=== PATIENT | male | born 1945 | race Caucasian/White ===

== ENCOUNTER → 2017-09-15 | Outpatient (CLI) | payer MEDICARE, OTHER ==
[2017-09-15 10:01] VITALS: BP 124/96
== END ==
LOC: SPU 08:48
PROVIDERS: ATTEND Internal Medicine Medical Oncology
DX: E83.110 Hereditary hemochromatosis (principal)
CPT/HCPCS: 85014; 99195

== ENCOUNTER → 2017-12-18 | Outpatient (CLI) | payer MEDICARE, OTHER ==
[2017-12-18 15:50] VITALS: BP 125/83
[2017-12-18 16:39] VITALS: BP 115/84
== END ==
LOC: SPU 07:41
PROVIDERS: ATTEND Internal Medicine Medical Oncology
DX: E83.119 Hemochromatosis, unspecified (principal)
CPT/HCPCS: 85014; 99195

== ENCOUNTER 2018-03-19 15:41 | Outpatient (RCR) | payer MEDICARE, OTHER ==
[2018-03-19 15:43] VITALS: BP 138/84
== END 2018-03-31 09:39 | disposition home or self-care (01) ==
LOC: SPU 15:41
PROVIDERS: ATTEND Internal Medicine Medical Oncology
DX: E83.119 Hemochromatosis, unspecified (principal)
CPT/HCPCS: 85014; 99195

== ENCOUNTER 2018-06-21 09:27 | Outpatient (RCR) | payer MEDICARE, OTHER ==
[2018-06-21 13:14] VITALS: BP 129/86
[2018-06-21 13:46] VITALS: BP 118/84
== END 2018-08-04 09:32 | disposition home or self-care (01) ==
LOC: SPU 09:27
PROVIDERS: ATTEND Internal Medicine Medical Oncology
DX: E83.110 Hereditary hemochromatosis (principal)
CPT/HCPCS: 85014

== ENCOUNTER 2018-09-24 12:30 | Outpatient (RCR) | payer MEDICARE, OTHER ==
[2018-09-24 12:33] VITALS: BP 129/87
[2018-09-24 13:13] VITALS: BP 136/89
== END 2018-12-22 ==
LOC: SPU 12:30
PROVIDERS: ATTEND Internal Medicine Medical Oncology
DX: E83.119 Hemochromatosis, unspecified (principal)
CPT/HCPCS: 85014; 99195

== ENCOUNTER 2018-12-30 18:40 | Emergency (ER) | payer MEDICARE, OTHER ==
[2018-12-30] MEDS ORDERED: LR IV ONE (19:00)
--- NOTE | 2018-12-30 19:05 | ER Report ---
History and Physical Time Seen By MD: 18:43 Hx. of Stated Complaint: PATIENT REPORTS FEVER, DIARRHEA, AND NAUSEA HPI/ROS CHIEF COMPLAINT: Diarrhea HISTORY OF PRESENT ILLNESS: 73-year-old male presents with multiple episodes of diarrhea. He first had loose stool last night, followed by 4 more overnight and 5 today. Stool has been watery and not bloody or black or mucousy. He has not recently been ill prior to this. He has had some mild cramping but does not have any currently. He has had some nausea but no vomiting. He has not had fever or chills. He has had a mild headache throughout the day. He has no chest pain or trouble breathing. He has no rash. He feels generally fatigued. He has no known sick contacts. He has no known food exposures. He has not had any recent travel. His is present with him and is not ill. Patient took an him Imodium prior to arrival. His last episode was at approximately 1600. titutional: No fever, no chills. Eyes: No discharge. ENT: No sore throat. Cardiovascular: No chest pain, no palpitations. Respiratory: No cough, no shortness of breath. Gastrointestinal: above Genitourinary: no dysuria Musculoskeletal: No back pain. Skin: No rashes. Neurological: above Remainder of the 14 system rev: Yes Allergies: Coded Allergies: Sulfa (Sulfonamide Antibiotics) (Verified Allergy, Intermediate, RASH, 12/30/18) Home Meds No Active Prescriptions or Reported Meds Reviewed Nurses Notes: Yes Constitutional Vital Sign - Last 24 Hours 12/30/18 12/30/18 12/30/18 12/30/18 18:45 18:46 19:00 19:10 Pulse 138 129 Resp 17 12 B/P (MAP) 139/99 (112) 139/99 135/92 (106) Pulse Ox 90 90 12/30/18 12/30/18 12/30/18 12/30/18 19:30 19:40 19:45 20:00 Pulse 121 122 Resp 16 17 B/P (MAP) 134/86 (102) 141/96 (111) Pulse Ox 90 90 12/30/18 12/30/18 12/30/18 12/30/18 20:05 20:30 20:35 20:40 Pulse 117 114 112 Resp 8 18 16 B/P (MAP) 136/97 (110) Pulse Ox 91 89 89 12/30/18 12/30/18 12/30/18 12/30/18 21:00 21:10 21:15 21:27 Pulse 109 113 Resp 15 16 B/P (MAP) 140/90 (107) 141/89 (106) Pulse Ox 91 90 12/30/18 12/30/18 12/30/18 12/30/18 21:30 21:45 22:00 22:15 Pulse 114 Resp 16 18 B/P (MAP) 132/88 (103) 139/95 (110) Pulse Ox 91 92 12/30/18 12/30/18 12/30/18 12/30/18 22:30 22:35 23:00 23:05 Pulse 114 111 Resp 14 21 B/P (MAP) 148/97 (114) 147/91 (109) Pulse Ox 90 90 12/30/18 12/30/18 12/30/18 12/31/18 23:28 23:30 23:35 00:00 Pulse 109 Resp 12 B/P (MAP) 142/88 (106) 134/86 (102) 128/89 (102) Pulse Ox 91 12/31/18 00:05 Pulse 110 Resp 17 Pulse Ox 87 Intake and Output 12/30/18 12/30/18 12/31/18 15:01 23:01 07:01 Intake Total 2881 ml 1000 ml Balance 2881 ml 1000 ml Physical Exam General Appearance: The patient is alert, has no immediate need for airway protection and no signs of toxicity. Eyes: Pupils equal and round no pallor or injection. ENT, Mouth: Mucous membranes are moist. Respiratory: There are no retractions, lungs are clear to auscultation. Cardiovascular: tachycardia to 140's no m/r/g Gastrointestinal: Abdomen is soft and non tender, no masses, bowel sounds normal. Neurological: alert, no gross deficit Skin: Warm and dry, no rashes. Musculoskeletal: Extremities are nontender, nonswollen and have full range of motion. DIFFERENTIAL DIAGNOSIS: After history and physical exam differential diagnosis was considered for abdominal infection, sepsis, infectious diarrhea, food toxin, or other emergnet etiology. Medical Decision Making Data Points Result Diagram: 12/30/18184912/30/181849 Laboratory Hematology Test 12/30/18 00:00 12/30/18 18:41 12/30/18 18:50 D-Dimer Quantitative (PE/DVT) 1.64 ug/ml (0-0.50) Urine Color Yellow Urine Clarity Clear Urine pH 6.0 pH (4.8-9.5) Urine Specific [place] 1.023 Urine Protein Negative mg/dL (NEGATIVE) Urine Glucose (UA) Negative mg/dL (NEGATIVE) Urine Ketones 20 mg/dL (NEGATIVE) Urine Blood Negative (NEGATIVE) Urine Nitrite Negative (NEGATIVE) Urine Bilirubin Negative (NEGATIVE) Urine Urobilinogen Negative mg/dL (0.2-1.9) Urine Leukocyte Esterase Negative (NEGATIVE) Urine RBC 1 /HPF (0-2/HPF) Urine WBC <1 /HPF (0-5/HPF) Urine Squamous Epithelial Cells Few /LPF (</=FEW) Urine Bacteria Negative /HPF (NONE-FEW) Urine Mucus Few /HPF (NONE-FEW) Red Blood Count 4.59 M/uL (4.00-5.60) Mean Corpuscular Volume 96.6 fL (80.0-96.0) Mean Corpuscular Hemoglobin 33.2 pg (26.0-33.0) Mean Corpuscular Hemoglobin Concent 34.4 g/dL (32.0-36.0) Red Cell Distribution Width 12.8 % (11.5-14.5) Mean Platelet Volume 8.2 fL (7.2-11.1) Neutrophils (%) (Auto) 85.3 % (39.4-72.5) Lymphocytes (%) (Auto) 9.2 % (17.6-49.6) Monocytes (%) (Auto) 4.2 % (4.1-12.4) Eosinophils (%) (Auto) 0.4 % (0.4-6.7) Basophils (%) (Auto) 0.9 % (0.3-1.4) Nucleated RBC Relative Count (auto) 0.0 /100WBC Neutrophils # (Auto) 11.0 K/uL (2.0-7.4) Lymphocytes # (Auto) 1.2 K/uL (1.3-3.6) Monocytes # (Auto) 0.5 K/uL (0.3-1.0) Eosinophils # (Auto) 0.1 K/uL (0.0-0.5) Basophils # (Auto) 0.1 K/uL (0.0-0.1) Nucleated RBC Absolute Count (auto) 0.01 K/uL Sodium Level 137 mmol/L (137-145) Potassium Level 4.2 mmol/L (3.5-5.0) Chloride Level 102 mmol/L (98-107) Carbon Dioxide Level 20 mmol/L (22-30) Blood Urea Nitrogen 16 mg/dl (9-21) Creatinine 1.00 mg/dl (0.66-1.25) Glomerular Filtration Rate Calc > 60.0 Random Glucose 129 mg/dl (75-110) Calcium Level 9.6 mg/dl (8.4-10.2) Magnesium Level 1.5 mg/dl (1.7-2.2) Total Bilirubin 0.8 mg/dl (0.2-1.3) Aspartate Amino Transf (AST/SGOT) 34 U/L (0-35) Alanine Aminotransferase (ALT/SGPT) 43 U/L (0-56) Alkaline Phosphatase 75 U/L (0-126) Total Protein 8.3 g/dl (6.3-8.2) Albumin 4.7 g/dl (3.5-5.0) Lipase 49 U/L (23-300) Chemistry Test 12/30/18 00:00 12/30/18 18:41 12/30/18 18:50 D-Dimer Quantitative (PE/DVT) 1.64 ug/ml (0-0.50) Urine Color Yellow Urine Clarity Clear Urine pH 6.0 pH (4.8-9.5) Urine Specific [place] 1.023 Urine Protein Negative mg/dL (NEGATIVE) Urine Glucose (UA) Negative mg/dL (NEGATIVE) Urine Ketones 20 mg/dL (NEGATIVE) Urine Blood Negative (NEGATIVE) Urine Nitrite Negative (NEGATIVE) Urine Bilirubin Negative (NEGATIVE) Urine Urobilinogen Negative mg/dL (0.2-1.9) Urine Leukocyte Esterase Negative (NEGATIVE) Urine RBC 1 /HPF (0-2/HPF) Urine WBC <1 /HPF (0-5/HPF) Urine Squamous Epithelial Cells Few /LPF (</=FEW) Urine Bacteria Negative /HPF (NONE-FEW) Urine Mucus Few /HPF (NONE-FEW) White Blood Count 12.9 k/uL (4.5-11.0) Red Blood Count 4.59 M/uL (4.00-5.60) Hemoglobin 15.3 g/dL (14.0-18.0) Hematocrit 44.4 % (42.0-52.0) Mean Corpuscular Volume 96.6 fL (80.0-96.0) Mean Corpuscular Hemoglobin 33.2 pg (26.0-33.0) Mean Corpuscular Hemoglobin Concent 34.4 g/dL (32.0-36.0) Red Cell Distribution Width 12.8 % (11.5-14.5) Platelet Count 245 K/uL (150-450) Mean Platelet Volume 8.2 fL (7.2-11.1) Neutrophils (%) (Auto) 85.3 % (39.4-72.5) Lymphocytes (%) (Auto) 9.2 % (17.6-49.6) Monocytes (%) (Auto) 4.2 % (4.1-12.4) Eosinophils (%) (Auto) 0.4 % (0.4-6.7) Basophils (%) (Auto) 0.9 % (0.3-1.4) Nucleated RBC Relative Count (auto) 0.0 /100WBC Neutrophils # (Auto) 11.0 K/uL (2.0-7.4) Lymphocytes # (Auto) 1.2 K/uL (1.3-3.6) Monocytes # (Auto) 0.5 K/uL (0.3-1.0) Eosinophils # (Auto) 0.1 K/uL (0.0-0.5) Basophils # (Auto) 0.1 K/uL (0.0-0.1) Nucleated RBC Absolute Count (auto) 0.01 K/uL Glomerular Filtration Rate Calc > 60.0 Calcium Level 9.6 mg/dl (8.4-10.2) Magnesium Level 1.5 mg/dl (1.7-2.2) Total Bilirubin 0.8 mg/dl (0.2-1.3) Aspartate Amino Transf (AST/SGOT) 34 U/L (0-35) Alanine Aminotransferase (ALT/SGPT) 43 U/L (0-56) Alkaline Phosphatase 75 U/L (0-126) Total Protein 8.3 g/dl (6.3-8.2) Albumin 4.7 g/dl (3.5-5.0) Lipase 49 U/L (23-300) Coagulation Test 12/30/18 00:00 D-Dimer Quantitative (PE/DVT) 1.64 ug/ml Urinalysis Test 12/30/18 18:41 Urine Color Yellow Urine Clarity Clear Urine pH 6.0 pH (4.8-9.5) Urine Specific [place] 1.023 Urine Protein Negative mg/dL (NEGATIVE) Urine Glucose (UA) Negative mg/dL (NEGATIVE) Urine Ketones 20 mg/dL (NEGATIVE) Urine Blood Negative (NEGATIVE) Urine Nitrite Negative (NEGATIVE) Urine Bilirubin Negative (NEGATIVE) Urine Urobilinogen Negative mg/dL (0.2-1.9) Urine Leukocyte Esterase Negative (NEGATIVE) Urine RBC 1 /HPF (0-2/HPF) Urine WBC <1 /HPF (0-5/HPF) Urine Squamous Epithelial Cells Few /LPF (</=FEW) Urine Bacteria Negative /HPF (NONE-FEW) Urine Mucus Few /HPF (NONE-FEW) Microbiology Microbiology Date/Time Source Procedure Growth Status 12/30/18 17:44 Stool Gram Stain - Final Resulted 12/30/18 17:44 Stool Stool Culture Pending Resulted EKG/Imaging EKG Interpretation 12 lead EKG: Rhythm: sinus tachycardia [place]: normal QRS: normal ST segments: normal QT 563 Monitor Interpretation: Sinus Tachycardia ED Course/Re-evaluation ED Course 73-year-old male presents with multiple episodes of diarrhea, no report of blood. Of note, his last colonoscopy was 4 years ago. Other than polyp removal, it was normal. There is no known family history of malignancy. He has a benign abdomen. He is significantly tachycardic to the 130s. We'll initiate 30 cc/kg of IV hydration and reassess. He steadily improves with iv hydration in the ED. He also reports that he went golfing yesterday and felt more thirsty than nl after this; it is likely he was somewhat dehydrated prior to diarrheal illness. He does not have high risk features for bacterial infectious/invasive diarrhea. On reassessment after 30 cc/kg, patient had gone to the bathroom. He noted that his urine was light and not painful. However, on return from bathroom, it was noted that patient's heart rate was 130s. As I would not expect this after fluid rehydration, I ordered a d-dimer to rule out PE. D-dimer is elevated, so I consented the patient for CT. Administered another liter of fluids while awaiting CT. If normal, patient's heart rate has improved, and would be reasonable for discharge at this point CT is unremarkable. Pt feels comfortable on ambulation. Is reasonable for discharge with strict rtn precautions. Aware that stool culture is pending and we will call with critical results. Decision to Disposition Date: Dec 31, 2018 Decision to Disposition Time: 00:15 Depart Departure Latest Vital Signs Vital Signs Date Time Temp Pulse Resp B/P (MAP) Pulse Ox O2 Delivery O2 Flow Rate FiO2 12/31/18 00:05 110 17 87 12/31/18 00:00 128/89 (102) Impression: Primary Impression: Diarrhea Additional Impression: Dehydration Condition: Improved Disposition: HOME OR SELF-CARE Referrals: LURDES BULL MD (PCP) 2 Days New Scripts No Active Prescriptions or Reported Meds Patient Instructions: Dehydration (ED) Additional Instructions: Your CT was normal; you do not have a blood clot. As we discussed, continue hydrating by drinking 50% more fluid daily than normal, for at least 2-3 days after diarrhea ends. Please return if you are feeling more fatigued, have concerning abdominal pain, vomiting, or any amanda rns. Problem Qualifiers Primary Impression: Diarrhea Diarrhea type: unspecified type Qualified Codes: R19.7 - Diarrhea, unspecified GONZÁLEZ KOROMA MD Dec 30, 2018 19:05
[2018-12-30 19:11] LABS: PLATELET COUNT, AUTOMATED 245 K/uL (150-450)
[2018-12-30] MEDS ORDERED: MAGNESIUM SUL* 2 GM/50 ML IVPB 50 ML IVPB ONE (19:30)
[2018-12-30] MEDS ORDERED: LR(*) 1000 ML BAG 1,000 ML VA ONE (22:20)
--- NOTE | 2018-12-30 22:39 | EKG ---
FACILITY: [facility] PATIENT NAME: MILA KELLOGG : [id number] MR: [id number] V: [id number] EXAM DATE: ORDERING PHYSICIAN: GONZÁLEZ KOROMA TECHNOLOGIST: JOSEPH Test Reason : TACHYCARDIA Blood Pressure : / mmHG Vent. Rate : 132 BPM Atrial Rate : 132 BPM P-R Int : 000 ms QRS Dur : 076 ms QT Int : 380 ms P-R-T Axes : 000 -02 005 degrees QTc Int : 563 ms Sinus tachycardia Left axis Possible left atrial enlargement Abnormal ECG No previous ECGs available Confirmed by LULÚ BRITO ([id number] on 12/31/2018 2:31:42 AM Referred By: Confirmed By:LULÚ BRITO
[2018-12-30] MEDS ORDERED: IOPAMIDOL 76% 100 ML INFUS BTL 100 ML ONE (23:03)
[2018-12-30] MEDS ORDERED: NS(*) 0.9% 50 ML BAG 50 ML ONE (23:04)
[2018-12-31] VITALS: BP 128/89
--- NOTE | 2018-12-31 00:06 | RADIOLOGY IMAGING REPORT ---
FACILITY: [facility] PATIENT NAME: Major Posey : 1945 MR: [id number] V: [id number] EXAM DATE: ORDERING PHYSICIAN: GONZÁLEZ KOROMA [place]CHNOLOG[place] [facility] [place] Pose[place] : 1945 Visit/Account:[id number] Date of Sevice: 12/30/2018 CT PE DATE: 12/30/2018 11:54 PM INDICATION: Dyspnea, tachycardia, elevated d-dimer. COMPARISON: None. TECHNIQUE: Axial CT angiogram was obtained through the chest with intravenous contrast. Sagittal an d coronal MPR and MIP coronal reformations were also generated. 75 mL isovue 370. One of the follow ing dose optimization techniques was utilized in the performance of this exam: Automated exposure con trol; adjustment of the mA and/or kV according to the patient's size; or use of an iterative reconst ruction technique. Specific details can be referenced in the facility's radiology CT exam operationa l policy. FINDINGS: Thyroid / Thoracic Inlet: No visualized thyroid nodule or supraclavicular lymphadenopathy. Pulmonary Arteries: No pulmonary embolism. Heart and Aorta: Normal-size heart with no pericardial effusion. Nonaneurysmal thoracic aorta. Mediastinum and [place]aph[place]: No lymphadenopathy. Lungs and Pleura: No pleural effusion or pneumothorax. Mild scarring/atelectasis. Calcified granul [place] in the left lower lobe Breast and Axilla: No axillary lymphadenopathy. Upper Abdomen: No visualized acute abnormality. Small hiatal hernia. Probable small nonobstructing calculus in the superior pole of left kidney. Colonic diverticulosis. Bones and Soft Tissues: No acute abnormality or suspicious lesion. IMPRESSION: 1. No pulmonary embolism or other acute abnormality. 2. Small hiatal hernia. Report Dictated By: Giancarlo Marino MD at 12/30/2018 11:54 PM Report E-Signed By: Giancarlo Marino MD at 12/31/2018 12:00 AM WSN:[id number]
== END 2018-12-31 00:33 | disposition home or self-care (01) ==
LOC: ER 18:43
DX: R19.7 Diarrhea, unspecified (principal); R79.89 Other specified abnormal findings of blood chemistry; R00.0 Tachycardia, unspecified
CPT/HCPCS: 71275; 81001; 83690; 83735; 85025; 85379; 87045; 87205; 93005; 96361; 96365; 99284; J3475; J7050; J7120; Q9967; 82040; 82247; 82310; 82374; 82435; 82565; 82947; 84075; 84132; 84155; 84295; 84450; 84460; 84520